=== PATIENT | female | born 1955 | race Caucasian/White ===

== ENCOUNTER 2016-07-20 10:13 | Emergency (ER) | payer BC ==
[2016-07-20 11:57] VITALS: BP 135/87
--- NOTE | 2016-07-20 12:33 | UC ---
Cardiac HPI - HPI Summary HPI Summary: The patient comes in today for: 1. Coughing, fever, nausea, headache, dyspnea, chest pressure: Onset: Flash of chest pain has been going on for "months." Chest pressure since last night. Palliative/provocative: Nothing makes her chest pressure better or worse. Quality: Pressure. Region: Chest, with no radiation. Severity: 3/10 Time: Comes and goes, but is present now. Associated symptoms: Anxiety: She has a history of anxiety Nausea: Present with chest pressure. CAD risk factors: Smoker, neg, HTN, neg, DM, neg, Heart disease: none. Cholesterol:unknown. Fm Hx. neg. coughing: Non-productive. Hx of Asthma/COPD: neg inhaler use: None. Temperature: 100.9 this morning. * - History of Current Complaint Chief Complaint: UCChestPain Stated Complaint: COUGH Time Seen by Provider: 07/20/16 12:25 Hx Obtained From: Patient - Allergy/Home Medications Allergies/Adverse Reactions: Allergies Allergy/AdvReac Type Severity Reaction Status Date / Time Perfume [Fragrance] Allergy INTOLERANCE Verified 07/20/16 11:58 Shellfish Allergy Allergy SEVERE Verified 07/20/16 11:58 NAUSEA/DIARRHEA PMH/Surg Hx/FS Hx/Imm Hx Previously Healthy: No Endocrine History Of: Reports: Thyroid Disease, Hypothyroidism - She has not started medications yet. Denies: Diabetes, Hyperthyroidism, Dyslipidemia Cardiovascular History Of: Denies: Cardiac Disorders, Hypertension, Pacemaker/ICD, Myocardial Infarction , Congestive Heart Failure, Atrial Fibrillation, Deep Vein Thrombosis, Bleeding Disorders Respiratory History Of: Denies: COPD, Asthma, Bronchitis, Pneumonia, Pulmonary Embolism GI/ History Of: Reports: Gastroesophageal Reflux - No medications. Denies: Ulcer, Gastrointestinal Bleed, Gall Bladder Disease, Kidney Stones, Diverticulitis, Renal Disease, Urosepsis Neurological History Of: Denies: TIA, CVA, Dementia, Seizures, Migraine Psychological History Of: Reports: Anxiety Denies: Depression, Bipolar Disorder, Schizophrenia, Post Traumatic Stress Disorder Cancer History Of: Denies: Lung Cancer, Colorectal Cancer, Breast Cancer, Prostate Cancer, Cervical Cancer Other History Of: Negative For: HIV, Hepatitis B, Hepatitis C, Anticoagulant Therapy - Surgical History Surgical History: Yes Surgery Procedure, Year, and Place: DEVIATED SEPTUM REPAIR- [facility]. D&C'S-[facility]. COLONOSCOPY WITH SEDATION X 2 -[facility] - Family History Known Family History: Positive: Cardiac Disease, Hypertension Negative: Blood Disorder - Social History Occupation: Employed Full-time Alcohol Use: Occasionally Substance Use Type: None Smoking Status (MU): Never Smoked Tobacco - Immunization History Most Recent Influenza Vaccination: Review of Systems Constitutional: Negative Skin: Negative Eyes: Negative ENT: Negative Respiratory: Shortness Of Breath, Cough Cardiovascular: Chest Pain Gastrointestinal: Negative Genitourinary: Negative All Other Systems Reviewed And Are Negative: Yes Physical Exam Triage Information Reviewed: Yes Appearance: Well-Appearing, No Pain Distress, Well-Nourished Vital Signs: Initial Vital Signs Temp 100.8 F 07/20/16 11:47 Pulse 138 07/20/16 11:47 Resp 22 07/20/16 11:47 BP 135/87 07/20/16 11:47 Pulse Ox 99 07/20/16 11:47 EKG: pulse: 119 Vital Signs Reviewed: Yes Eyes: Positive: Conjunctiva Clear. Negative: Discharge ENT: Positive: Hearing grossly normal. Negative: Pharyngeal erythema, Nasal congestion, Nasal drainage, TM bulging, TM dull, TM red, Tonsillar swelling, Tonsillar exudate Dental: Negative: Gross Decay/Caries @, Dental Fracture @ Neck: Positive: Supple, Nontender, No Lymphadenopathy. Negative: Nuchal Rigidity Respiratory: Positive: Lungs clear, No respiratory distress, No accessory muscle use. Negative: Crackles, Wheezing Cardiovascular: Positive: RRR, No Murmur Abdomen Description: Positive: Nontender, No Organomegaly, Soft. Negative: Distended, Guarding, Peritoneal Signs Musculoskeletal: Positive: Strength Intact, ROM Intact, No Edema Neurological: Positive: Alert, Muscle Tone Normal Psychological: Positive: Age Appropriate Behavior, Consolable Skin: Negative: rashes, breakdown Diagnostics - Laboratory Diagnostic Studies Completed/Ordered: EKG: Rate: 119. Rhythm: Sinus tachycardia with isolated PVC's--no runs. Ectopy: isolated PVC's. Acute changes: None. - Assessment/Plan Course Of Treatment: Patient was told that we are not able to evaluate chest pressure with shortness of breath here, and therefore my recommendation was to go to the ER. She agreed. - Clinical Impression Provider Diagnoses: Chest pressure. - Physician Notifications Discussed Patient Care With: Dr. Alston. Time Discussed With Above Provider: 12:57 Discharge - Discharge Plan Condition: Stable Disposition: TRANS HIGHER LVL OF CARE FAC Additional Instructions: Patient going to ER at [facility] via ambulance.
[2016-07-20] MEDS ORDERED: Aspirin Low Dose CHEW TAB* 81 MG PO ONE (12:52)
== END 2016-07-20 13:15 | disposition short-term general hospital (02) ==
LOC: UCEAST 10:13
DX: R07.89 Other chest pain (principal); R05 Cough; R50.9 Fever, unspecified; R11.0 Nausea; R51 Headache; R06.00 Dyspnea, unspecified
CPT/HCPCS: 93005; 99213; A9270-GY; G0463

== ENCOUNTER 2016-07-20 13:35 | Emergency (ER) | payer BC ==
[2016-07-20 14:29] LABS: Hematocrit 44 % (35-47); Hemoglobin 15.2 g/dl (12.0-16.0); Mean Corpuscular HGB Conc 34 g/dl (31-36); Mean Corpuscular Hemoglobin 30 pg (27-31); Mean Corpuscular Volume 87 fL (80-97); Mean Platelet Volume 9 um3 (7.4-10.4); Red Blood Count 5.09 10^6/ul (4.0-5.4); Red Cell Distribution Width 13 % (10.5-15); White Blood Count 10.1 10^3/ul (3.5-10.8)
[2016-07-20 14:41] LABS: Albumin 4.7 g/dL (3.2-5.2); BUN/Creatinine Ratio 11.2 (8-20); Calcium 10.2 mg/dL (8.6-10.3); EGFR African American 83.2 (>60); EGFR Non-African American 64.7 (>60); Potassium 3.7 mmol/L (3.5-5.0); Total Bilirubin 1.2 mg/dL (0.2-1.0); Total Protein 7.7 g/dL (6.4-8.9)
[2016-07-20] MEDS ORDERED: Iohexol 350* (CONTRAST) 500 ML MDV IV ONE (14:52)
--- NOTE | 2016-07-20 15:29 | RAD ---
INDICATION: Chest pain. COMPARISON: July 20, 2016 chest radiograph. TECHNIQUE: Multidetector CT images were obtained from the lung apices to the upper abdomen with 60 mL Omnipaque 350 IV contrast. Pulmonary angiogram protocol. Multiplanar reformation including with maximum intensity projection. REPORT: Aside from minimal dependent atelectasis the lungs and pleural spaces are clear. Negative for pneumothorax. Negative for thoracic lymphadenopathy, cardiomegaly, pericardial effusion. Normal diameter thoracic aorta without CT abnormality. No filling defects are identified from the main to the subsegmental pulmonary arteries to indicate presence of a pulmonary embolism. Limited images through the upper abdomen are unremarkable. Negative for suspicious osseous lesions. IMPRESSION: No evidence for pulmonary embolism or other acute intrathoracic pathology.
[2016-07-20] MEDS ORDERED: NS 0.9% 1000 ML* 1,000 ML IV ONE ×2 (15:57→15:58)
[2016-07-20] MEDS ORDERED: Ibuprofen TAB* 600 MG PO ONE (15:58)
[2016-07-20] MEDS ORDERED: Oseltamivir CAP* 75 MG PO ONE (16:53)
--- NOTE | 2016-07-20 16:58 | RAD ---
Indication: Chest pain. Single frontal view of the chest performed at 1430 hours was reviewed. Comparison is made with previous exam dated July 18, 2016. No mediastinal shift is noted. Heart is of normal size and configuration. Lung clarke appear clear. IMPRESSION: HYPERINFLATED LUNG CLARKE WITHOUT EVIDENCE OF ACTIVE CARDIOPULMONARY DISEASE.
[2016-07-20 18:51] VITALS: BP 109/70
--- NOTE | 2016-07-22 06:38 | ED ---
Precious Monson Janilya, scribed for Dwayne Saravia MD on 07/20/16 at 1426 . HPI Chest Pain - HPI Summary HPI Summary: A 61 y/o female was sent to [facility] after she came in to [facility] presenting w/ general illness starting 1900 last night and severity rated 2/10. Pt reports chest discomfort that is different from baseline chest pressure. CP does not radiate to neck, back, or arms. Pt states that she feels heaviness in chest and has difficulty breathing that towards the end of a breath, she starts coughing. She also notes that after dinner she started coughing heavily which motivated her visit to [facility] today. Pt does not get sweaty but gets hot due to anxiety. Other pertinent positives include fever of 101 F and nausea. There is also baseline joint pain for couple years. Pt does not experience diarrhea, vomiting , blood in stool, hematuria, or dysuria. - History of Current Complaint Chief Complaint: EDUpperRespComplaint Time Seen by Provider: 07/20/16 14:17 Hx Obtained From: Patient Onset/Duration: Started Hours Ago, Still Present Timing: Intermittent, Lasting Hours Initial Severity: Moderate Current Severity: Moderate Pain Intensity: 2 Pain Scale Used: 0-10 Numeric Chest Pain Location: Diffuse Chest Pain Radiates: No Character: Cough, Non-Productive, Dyspnea at Rest, Heaviness Aggravating Factor(s): Other: - cough Associated Signs and Symptoms: Positive: Chest Pain, Anxiety, Shortness of Breath, Fever, Nausea, Cough. Negative: Vomiting - Allergy/Home Medications Allergies/Adverse Reactions: Allergies Allergy/AdvReac Type Severity Reaction Status Date / Time Perfume [Fragrance] Allergy INTOLERANCE Verified 07/20/16 11:58 Shellfish Allergy Allergy SEVERE Verified 07/20/16 11:58 NAUSEA/DIARRHEA Home Medications: Home Medications ALPRAZolam TAB* [Xanax TAB*] 1 mg PO DAILY PRN 07/20/16 [History Confirmed 07/20] Estradiol Vaginal [Yuvafem] 10 mcg VAGINAL .TWICE A WEEK 07/20/16 [History Confirmed 07/20/16] Levothyroxine TAB* [Synthroid TAB*] 25 mcg PO DAILY 07/20/16 [History Confirmed 07/20/16] Zolpidem TAB* [Ambien TAB*] 5 mg PO BEDTIME PRN 07/20/16 [History Confirmed ] PMH/Surg Hx/FS Hx/Imm Hx Endocrine/Hematology History: Reports: Hx Thyroid Disease, Hx Anemia - HX OF - TAKES B12 Denies: Hx Anticoagulant Therapy, Hx Diabetes Cardiovascular History: Denies: Hx Congestive Heart Failure, Hx Deep Vein Thrombosis, Hx Hypertension , Hx Myocardial Infarction, Hx Pacemaker/ICD Respiratory History: Denies: Hx Asthma, Hx Chronic Obstructive Pulmonary Disease (COPD), Hx Lung Cancer, Hx Pneumonia, Hx Pulmonary Embolism GI History: Reports: Hx Irritable Bowel Denies: Hx Gall Bladder Disease, Hx Gastrointestinal Bleed, Hx Ulcer, Hx Urosepsis History: Denies: Hx Kidney Stones, Hx Renal Disease Musculoskeletal History: Reports: Hx Arthritis - "EVERYWHERE" Sensory History: Reports: Hx Cataracts - BILATERAL, Hx Contacts or Glasses - GLASSES Denies: Hx Hearing Aid Opthamlomology History: Reports: Hx Cataracts - BILATERAL, Hx Contacts or Glasses - GLASSES Neurological History: Reports: Hx Headaches - PRN IBUPROFEN Denies: Hx Dementia, Hx Migraine, Hx Seizures, Hx Transient Ischemic Attacks (TIA) Psychiatric History: Reports: Hx Anxiety Denies: Hx Depression, Hx Schizophrenia, Hx Bipolar Disorder - Cancer History Hx Chemotherapy: No Hx Radiation Therapy: No - Surgical History Surgery Procedure, Year, and Place: DEVIATED SEPTUM REPAIR- [facility]. [facility]. COLONOSCOPY WITH SEDATION X 2 -[facility] Hx Anesthesia Reactions: No Infectious Disease History: No Infectious Disease History: Denies: Traveled Outside the [place] in Last 30 Days - Family History Known Family History: Positive: Cardiac Disease, Hypertension - mother Negative: Blood Disorder - Social History Alcohol Use: Occasionally Substance Use Type: Reports: None Smoking Status (MU): Never Smoked Tobacco Review of Systems Positive: Fever Positive: Chest Pain Positive: Shortness Of Breath, Cough Positive: Nausea. Negative: Vomiting, Diarrhea Negative: dysuria, hematuria, other - blood in stool Positive: Arthralgia Positive: Headache Positive: Anxious All Other Systems Reviewed And Are Negative: Yes Physical Exam - Summary Physical Exam Summary: GENERAL EXAM GENERAL: Awake, alert, oriented, no acute distress, very pleasant, febrile HEENT: Head is normocephalipolc, atraumatic, anicteric sclera, clear conjunctiva , mucous membranes moist, no erythema, no discharge, no lesions, neck is supple , trachea is midline, no JVD CARDIAC: Tachycardia, S1, S2, no rub, no murmur, no gallop, 2+ radial and pedal pulses bilaterally RESPIRATORY: Clear to auscultation bilaterally with no rales, rhonchi, or wheezes, non-tender ABDOMEN: Bowel sounds positive, no bruit, soft, non-tender, no CVA tenderness EXTREMITIES: No edema, warm, dry, moving all extremities in a grossly normal manner NEUROLOGICAL: Mood is appropriate, moving all extremities in a grossly normal manner Triage Information Reviewed: Yes Vital Signs On Initial Exam: Initial Vitals Temp Pulse Resp BP Pulse Ox 98.3 F 72 16 122/72 97 07/20/16 13:35 07/20/16 13:35 07/20/16 13:35 07/20/16 13:35 07/20/16 13:35 Vital Signs Reviewed: Yes Diagnostics - Vital Signs Vital Signs Temp Pulse Resp BP Pulse Ox 07/20/16 13:35 98.3 F 72 16 122/72 97 - Laboratory Result Diagrams: 07/20/16 13:05 07/20/16 13:05 Lab Statement: Any lab studies that have been ordered have been reviewed, and results considered in the medical decision making process. - Radiology CXR Xray Interpretation: No Acute Changes Radiology Interpretation Completed By: Radiologist - IMPRESSION: HYPERINFLATED LUNG CLARKE WITHOUT EVIDENCE OF ACTIVE CARDIOPULMONARY DISEASE. - CT CTA Chest CT Interpretation: No Acute Changes CT Interpretation Completed By: Radiologist - IMPRESSION: No evidence for pulmonary embolism or other intrathoracic pathology. - EKG 1509 EKG Rhythm: Sinus Tachycardia - 108 bpm EKG Interpretation: No acute ischemia Chest Pain Course/Dx - Diagnoses Provider Diagnoses: Influenza A Discharge - Discharge Plan Condition: Stable Disposition: HOME Prescriptions: Oseltamivir CAP* [Tamiflu CAP*] 75 mg PO BID #10 cap Patient Education Materials: Influenza (ED) Forms: *Work Release Referrals: Jose Luis Schilling MD [Primary Care Provider] - 2 Days The documentation as recorded by the Precious bishop Janilya accurately reflects the service I personally performed and the decisions made by Manjit boyle Steven, MD.
== END 2016-07-20 19:03 | disposition home or self-care (01) ==
LOC: ED 13:35
DX: J11.1 Influenza due to unidentified influenza virus with other respiratory manifestations (principal); R05 Cough; R06.00 Dyspnea, unspecified; R07.9 Chest pain, unspecified; F41.9 Anxiety disorder, unspecified; R06.02 Shortness of breath; R50.9 Fever, unspecified; R11.0 Nausea; R51 Headache
CPT/HCPCS: 36415; 71010; 71275; 80053; 82550; 82553; 83605; 83874; 83880; 84484; 85025; 85610; 85730; 87040; 87502; 87651; 93005; 96360; 99213; 99284; A9270-GY; G0463; Q9967